=== PATIENT | female | born 1935 | race Caucasian/White ===

== ENCOUNTER 2020-06-22 15:13 | Emergency (ER) | payer MEDICARE, BC ==
[2020-06-22] MEDS ORDERED: Sodium Chloride 0.9% 10 ML Syringe FLUSH PRN (15:32)
--- NOTE | 2020-06-22 16:41 | EDM.PDOC ---
ED HPI GENERAL MEDICAL PROBLEM - General Chief Complaint: Respiratory Problem Stated Complaint: [facility] Time Seen by Provider: 06/22/20 15:18 Source of Information: Reports: Patient, EMS, Family History Limitations: Reports: No Limitations - History of Present Illness INITIAL COMMENTS - FREE TEXT/NARRATIVE: The patient presents by [facility] for shortness of breath, cough, fever and generalized weakness. She is on oxygen at home. She is not sure why and her is not sure why she is on the oxygen. Her says she does not have asthma or COPD. She has been requiring more oxygen over the past few days. When she arrived here she was on a nonrebreather and her oxygen saturations were in the upper 70s. She has no chest pain. She had a fever, chills, cough, and generalized weakness. Onset: Gradual Duration: Day(s): (3) Severity: Moderate Improves with: Reports: None Worsens with: Reports: None Associated Symptoms: Reports: Cough, Fever/Chills, Shortness of Breath. Denies: Chest Pain, Headaches, Nausea/Vomiting - Related Data Allergies Allergy/AdvReac Type Severity Reaction Status Date / Time No Known Allergies Allergy Verified 01/11/14 10:14 Social & Family History - Tobacco Use Tobacco Use Status *Q: Never Tobacco User - Caffeine Use Caffeine Use: Reports: None - Recreational Drug Use Recreational Drug Use: No ED ROS GENERAL - Review of Systems Review Of Systems: See Below Constitutional: Reports: Fever, Chills, Malaise, Weakness, Fatigue HEENT: Reports: No Symptoms Respiratory: Reports: Shortness of Breath, Cough Cardiovascular: Reports: No Symptoms Endocrine: Reports: No Symptoms GI/Abdominal: Reports: No Symptoms : Reports: No Symptoms Musculoskeletal: Reports: No Symptoms ED EXAM, GENERAL - Physical Exam Exam: See Below Exam Limited By: No Limitations General Appearance: Alert, Moderate Distress Ears: Normal External Exam Nose: Normal Inspection Head: Atraumatic, Normocephalic Neck: Normal Inspection Respiratory/Chest: Respiratory Distress (Moderate), Decreased Breath Sounds, Rhonchi Cardiovascular: Regular Rate, Rhythm, No Edema, No Murmur GI/Abdominal: Soft, Non-Tender, No Organomegaly, No Mass Back Exam: Normal Inspection Extremities: Normal Inspection Neurological: Alert, Oriented, No Motor/Sensory Deficits #1 Interpretation EKG Date: 06/22/20 Time: 15:41 Rhythm: NSR Rate (Beats/Min): 67 [place]: Normal P-Wave: Present QRS: RBBB ST-T: Other (Flipped T waves in the inferior and lateral leads) Course - Vital Signs Last Recorded V/S: Last Vital Signs Temp 98.2 F 06/22/20 15:30 Pulse 77 06/22/20 15:30 Resp 31 H 06/22/20 15:30 BP 121/58 L 06/22/20 15:30 Pulse Ox 77 L 06/22/20 15:30 - Orders/Labs/Meds Orders: Active Orders 24 hr Category Date Time Status Cardiac Monitoring [RC] . DIRECTED Care 06/22/20 15:32 Active EKG Documentation Completion [RC] STAT Care 06/22/20 15:33 Active Oxygen Therapy [RC] PRN Care 06/22/20 15:32 Active Peripheral IV Care [RC] . DIRECTED Care 06/22/20 15:33 Active Chest 1V Frontal [CR] Stat Exams 06/22/20 15:33 Taken Sodium Chloride 0.9% [Saline Flush] Med 06/22/20 15:32 Active 10 ml FLUSH ASDIRECTED PRN BiPAP [RESPCARE] Routine Oth 06/22/20 15:34 Active Peripheral IV Insertion Adult [OM.PC] Stat Oth 06/22/20 15:32 Ordered Medication Orders Sodium Chloride (Saline Flush) 10 ml FLUSH ASDIRECTED PRN PRN Reason: Keep Vein Open Last Admin: 06/22/20 15:51 Dose: 10 ml Documented by: KATHARINA Labs: Laboratory Tests 06/22/20 06/22/20 06/22/20 Range/Units 14:45 15:30 15:30 WBC 6.31 (3.98-10.04) K/mm3 RBC 4.54 (3.98-5.22) M/mm3 Hgb 14.0 (11.2-15.7) gm/dl Hct 42.9 (34.1-44.9) % MCV 94.5 (79.4-94.8) fl MCH 30.8 (25.6-32.2) pg MCHC 32.6 (32.2-35.5) g/dl RDW Std Deviation 43.9 (36.4-46.3) fL Plt Count 100 L (182-369) K/mm3 MPV 13.0 H (9.4-12.3) fl Neut % (Auto) 78.6 H (34.0-71.1) % Lymph % (Auto) 12.0 L (19.3-51.7) % Patrick % (Auto) 8.9 (4.7-12.5) % Eos % (Auto) 0 L (0.7-5.8) Baso % (Auto) 0.2 (0.1-1.2) % Neut # (Auto) 4.96 (1.56-6.13) K/mm3 Lymph # (Auto) 0.76 L (1.18-3.74) K/mm3 Patrick # (Auto) 0.56 H (0.24-0.36) K/mm3 Eos # (Auto) 0.00 L (0.04-0.36) K/mm3 Baso # (Auto) 0.01 (0.01-0.08) K/mm3 D-Dimer, Quantitative 1.36 H (0.19-0.50) mg/L Sodium 135 L (136-145) mEq/L Potassium 4.1 (3.5-5.1) mEq/L Chloride 102 (98-107) mEq/L Carbon Dioxide 22 (21-32) mEq/L Anion Gap 15.1 H (5-15) BUN 74 H (7-18) mg/dL Creatinine 2.3 H (0.55-1.02) mg/dL Est Cr Clr Drug Dosing 15.16 mL/min Estimated GFR (MDRD) 20 (>60) mL/min BUN/Creatinine Ratio 32.2 H (14-18) Glucose 160 H (83-115) mg/dL Lactic Acid (0.4-2.0) mmol/L Calcium 8.4 L (8.5-10.1) mg/dL Ferritin (8-252) ng/ml Total Bilirubin 0.7 (0.2-1.0) mg/dL AST 120 H (15-37) U/L ALT 70 H (14-59) U/L Alkaline Phosphatase 66 (46-116) U/L Lactate Dehydrogenase 538 H (81-234) U/L Troponin I 0.392 H* (0.00-0.056) ng/mL C-Reactive Protein 18.9 H* (<1.0) mg/dL NT-Pro-B Natriuret Pep (0-450) pg/mL Total Protein 6.7 (6.4-8.2) g/dl Albumin 2.6 L (3.4-5.0) g/dl Globulin 4.1 gm/dL Albumin/Globulin Ratio 0.6 L (1-2) SARS-CoV-2 RNA (JOVON) (NEGATIVE) 06/22/20 06/22/20 06/22/20 Range/Units 15:30 15:30 15:30 WBC (3.98-10.04) K/mm3 RBC (3.98-5.22) M/mm3 Hgb (11.2-15.7) gm/dl Hct (34.1-44.9) % MCV (79.4-94.8) fl MCH (25.6-32.2) pg MCHC (32.2-35.5) g/dl RDW Std Deviation (36.4-46.3) fL Plt Count (182-369) K/mm3 MPV (9.4-12.3) fl Neut % (Auto) (34.0-71.1) % Lymph % (Auto) (19.3-51.7) % Patrick % (Auto) (4.7-12.5) % Eos % (Auto) (0.7-5.8) Baso % (Auto) (0.1-1.2) % Neut # (Auto) (1.56-6.13) K/mm3 Lymph # (Auto) (1.18-3.74) K/mm3 Patrick # (Auto) (0.24-0.36) K/mm3 Eos # (Auto) (0.04-0.36) K/mm3 Baso # (Auto) (0.01-0.08) K/mm3 D-Dimer, Quantitative (0.19-0.50) mg/L Sodium (136-145) mEq/L Potassium (3.5-5.1) mEq/L Chloride (98-107) mEq/L Carbon Dioxide (21-32) mEq/L Anion Gap (5-15) BUN (7-18) mg/dL Creatinine (0.55-1.02) mg/dL Est Cr Clr Drug Dosing mL/min Estimated GFR (MDRD) (>60) mL/min BUN/Creatinine Ratio (14-18) Glucose (83-115) mg/dL Lactic Acid 1.1 (0.4-2.0) mmol/L Calcium (8.5-10.1) mg/dL Ferritin 676 H (8-252) ng/ml Total Bilirubin (0.2-1.0) mg/dL AST (15-37) U/L ALT (14-59) U/L Alkaline Phosphatase (46-116) U/L Lactate Dehydrogenase (81-234) U/L Troponin I (0.00-0.056) ng/mL C-Reactive Protein (<1.0) mg/dL NT-Pro-B Natriuret Pep 3193 H (0-450) pg/mL Total Protein (6.4-8.2) g/dl Albumin (3.4-5.0) g/dl Globulin gm/dL Albumin/Globulin Ratio (1-2) SARS-CoV-2 RNA (JOVON) (NEGATIVE) 06/22/20 Range/Units 15:35 WBC (3.98-10.04) K/mm3 RBC (3.98-5.22) M/mm3 Hgb (11.2-15.7) gm/dl Hct (34.1-44.9) % MCV (79.4-94.8) fl MCH (25.6-32.2) pg MCHC (32.2-35.5) g/dl RDW Std Deviation (36.4-46.3) fL Plt Count (182-369) K/mm3 MPV (9.4-12.3) fl Neut % (Auto) (34.0-71.1) % Lymph % (Auto) (19.3-51.7) % Patrick % (Auto) (4.7-12.5) % Eos % (Auto) (0.7-5.8) Baso % (Auto) (0.1-1.2) % Neut # (Auto) (1.56-6.13) K/mm3 Lymph # (Auto) (1.18-3.74) K/mm3 Patrick # (Auto) (0.24-0.36) K/mm3 Eos # (Auto) (0.04-0.36) K/mm3 Baso # (Auto) (0.01-0.08) K/mm3 D-Dimer, Quantitative (0.19-0.50) mg/L Sodium (136-145) mEq/L Potassium (3.5-5.1) mEq/L Chloride (98-107) mEq/L Carbon Dioxide (21-32) mEq/L Anion Gap (5-15) BUN (7-18) mg/dL Creatinine (0.55-1.02) mg/dL Est Cr Clr Drug Dosing mL/min Estimated GFR (MDRD) (>60) mL/min BUN/Creatinine Ratio (14-18) Glucose (83-115) mg/dL Lactic Acid (0.4-2.0) mmol/L Calcium (8.5-10.1) mg/dL Ferritin (8-252) ng/ml Total Bilirubin (0.2-1.0) mg/dL AST (15-37) U/L ALT (14-59) U/L Alkaline Phosphatase (46-116) U/L Lactate Dehydrogenase (81-234) U/L Troponin I (0.00-0.056) ng/mL C-Reactive Protein (<1.0) mg/dL NT-Pro-B Natriuret Pep (0-450) pg/mL Total Protein (6.4-8.2) g/dl Albumin (3.4-5.0) g/dl Globulin gm/dL Albumin/Globulin Ratio (1-2) SARS-CoV-2 RNA (JOVON) Positive H (NEGATIVE) Meds: Medications Generic Name Dose Route Start Last Admin Trade Name Freq PRN Reason Stop Dose Admin Sodium Chloride 10 ml 06/22/20 15:32 06/22/20 15:51 Saline Flush FLUSH 10 ml ASDIRECTED PRN Administration Keep Vein Open Discontinued Medications Generic Name Dose Route Start Last Admin Trade Name Freq PRN Reason Stop Dose Admin Dexamethasone 6 mg 06/22/20 17:02 06/22/20 17:40 Decadron IVPUSH 06/22/20 17:03 6 mg ONETIME ONE Administration - Re-Assessments/Exams Free Text/Narrative Re-Assessment/Exam: 06/22/20 17:11 I ordered an IV saline lock, O2 with BiPAP, CXR, labs, COVID 19. Her EKG shows a RBBB with some flipped T waves in the inferior and lateral leads. Her CXR shows bilateral alveolar opacities, more extensive on the right than left, in keeping with bilateral pneumonia. Her CBC looks good. Her D-dimer is elevated at 1.36. Her Na is 135. Her creatinine is elevated at 2.3. Her glucose is elevated at 160. Her ferritin is elevated at 676. Her AST is elevated at 120 along with her ALT of 70. Her LDH is elevated at 538. Her troponin is elevated at 0.392. Her CRP is elevated at 18.9. Her BNP is elevated is elevated at 3193. She is COVID positive. I talked with our hospitalist Dr Armstrong and he felt she is to sick to be admitted. I have a call out to [facility] and they will call me back. I have ordered a dose of dexamethasone. 06/22/20 18:[address] Tate at [facility] and he says the have a non ICU bed. If that patient is DNR/DNI he can take her. I talked to the patient earlier and she did not want to be intubated. I do not think she knows what I am talking about. I talked with her and daughters and they said she never talked about it before. They think she is confused and they want her to be a full code. I called [facility] back and they could not take her. I called [facility] in [place] and talked with Dr Palmer the broomcorn sorter and Dr Huerta the hospitalist and Dr Huerta accepted her. The patient will need to fly. Our local EMS is on another transfer and cannot take her. Departure - Departure Time of Disposition: 18:20 Disposition: DC/Tfer to [facility] 02 Condition: Serious Clinical Impression: COVID-19, Pneumonia due to COVID-19 virus, Renal insufficiency, Hypoxia - Discharge Information Referrals: Anuradha Dale MD [Primary Care Provider] - Forms: ED Department Discharge Sepsis Event Note (ED) - Evaluation Sepsis Screening Result: No Definite Risk - Focused Exam Vital Signs: Vital Signs Temp Pulse Resp BP Pulse Ox 06/22/20 15:30 98.2 F 77 31 H 121/58 L 77 L - My Orders Last 24 Hours: My Active Orders 06/22/20 15:32 Cardiac Monitoring [RC] . DIRECTED Oxygen Therapy [RC] PRN Sodium Chloride 0.9% [Saline Flush] 10 ml FLUSH ASDIRECTED PRN Peripheral IV Insertion Adult [OM.PC] Stat 06/22/20 15:33 EKG Documentation Completion [RC] STAT Peripheral IV Care [RC] . DIRECTED Chest 1V Frontal [CR] Stat 06/22/20 15:34 BiPAP [RESPCARE] Routine - Assessment/Plan Last 24 Hours: My Active Orders 06/22/20 15:32 Cardiac Monitoring [RC] . DIRECTED Oxygen Therapy [RC] PRN Sodium Chloride 0.9% [Saline Flush] 10 ml FLUSH ASDIRECTED PRN Peripheral IV Insertion Adult [OM.PC] Stat 06/22/20 15:33 EKG Documentation Completion [RC] STAT Peripheral IV Care [RC] . DIRECTED Chest 1V Frontal [CR] Stat 06/22/20 15:34 BiPAP [RESPCARE] Routine
[2020-06-22] MEDS ORDERED: Dexamethasone 4 MG/ML SDV IVPUSH ONE (17:02)
--- NOTE | 2020-06-25 09:07 | CR ---
PROCEDURE INFORMATION: Exam: XR Chest, 1 View Exam date and time: 06/22/2020 3:22 PM Age: 84 years old Clinical indication: Chest pain; Type not specified; Additional info: Patient on covid precautions TECHNIQUE: Imaging protocol: XR of the chest Views: 1 view. COMPARISON: CR LT RIBS WITH PA CHEST 10/22/2013 3:56 PM FINDINGS: Lungs: There are new bilateral alveolar opacities, more extensive on the right than the left. Pleural space: There are no pleural effusions. There is no pneumothorax. Heart/Mediastinum: The cardiac silhouette is enlarged. The mediastinum appears widened, likely due to technique and patient rotation. The pulmonary vessels are within normal limits. Bones/joints: No acute osseous pathology is identified. IMPRESSION: Bilateral alveolar opacities, more extensive on the right than the left, in keeping with bilateral pneumonia. Thank you for allowing us to participate in the care of your patient. Dictated and Authenticated by: Mary Jo Brunner MD 06/22/2020 5:39 PM Central Time ([place] & [place]) ROXANA
== END 2020-06-22 18:45 ==
LOC: JD.ED 15:13
DX: U07.1 COVID-19 (principal); J12.89 Other viral pneumonia; R09.02 Hypoxemia; N28.9 Disorder of kidney and ureter, unspecified; I45.10 Unspecified right bundle-branch block
CPT/HCPCS: 36415; 71045; 80053; 82728; 83605; 83615; 83880; 84484; 85025; 85379; 86140; 93005; 94660; 96374; 99285; J1100; U0002; 93010